=== PATIENT | female | born 1985 | race Caucasian/White ===

== ENCOUNTER → 2019-07-22 | Outpatient (CLI) | payer OTHER ==
[~2019-07-22] MED LIST: CHILDREN'S100 MG/59 PO; HYDROCODONE-APA10 ML PO
== END ==
LOC: LAB 10:46
PROVIDERS: ATTEND Family Medicine
DX: R05 Cough (principal); R50.9 Fever, unspecified; Z20.828 Contact with and (suspected) exposure to other viral communicable diseases